=== PATIENT | female | born 1990 | race Caucasian/White ===

== ENCOUNTER 2017-03-27 11:44 | Emergency (ER) | payer OTHER ==
[2017-03-27 12:07] VITALS: BP 136/80; PULSE 65; TEMP 98.1; BMI 27.3
--- NOTE | 2017-03-27 13:22 | PDOC ---
History of Present Illness - General Chief Complaint: Sore Throat Stated Complaint: THROAT PAIN Time Seen by Provider: 03/27/17 12:49 History Source: Patient Exam Limitations: No Limitations - History of Present Illness Initial Comments: 03/27/17 13:16 Patient is a 27-year-old female history of achalasia with repair, 1 week history of sore throat, dysphasia, now developed generalized rash. Tactile fever last night. No cough. Allergies: No known allergies Medications: None Family History: Non-contributory Social History: Denies smoking, alcohol use, or IVDU Review of Systems GENERAL/CONSTITUTIONAL: Fever. No weakness. No weight change. HEAD, EYES, EARS, NOSE AND THROAT: No change in vision. No ear pain or discharge. No sore throat. CARDIOVASCULAR: No chest pain or shortness of breath. RESPIRATORY: No cough, wheezing, or hemoptysis. GASTROINTESTINAL: No nausea, vomiting, diarrhea or constipation. No rectal bleeding. GENITOURINARY: No dysuria, frequency, or change in urination. MUSCULOSKELETAL: No joint or muscle swelling or pain. No neck or back pain. SKIN : No rash or easy bruising. Fine macular generalized rash HEMATOLOGIC/LYMPHATIC: No anemia, easy bleeding, or history of blood clots. No lymphadenopathy. ALLERGIC/IMMUNOLOGIC: No hives or skin allergy. No latex allergy. Physical Exam: GENERAL: The patient is awake, alert, and fully oriented, in no acute distress. EYES: Pupils equal, round and reactive to light, extraocular movements intact, sclera anicteric, conjunctiva clear. ENT: Ears normal, nares patent, oropharynx erythematous with exudates. Moist mucous membranes. No uvula deviation NECK: Normal range of motion, supple without lymphadenopathy, JVD, or masses. LUNGS: Breath sounds equal, clear to auscultation bilaterally. No wheezes, and no crackles. HEART: Regular rate and rhythm, normal S1 and S2 without murmur, rub or gallop. ABDOMEN: Soft, nontender, normoactive bowel sounds. No guarding, no rebound. No masses. No bruising or abrasions MUSCULOSKELETAL: Normal range of motion, no edema. No clubbing or cyanosis. No cords, erythema, or tenderness. NEUROLOGICAL: Cranial nerves II through XII grossly intact. Normal speech, normal gait. SKIN: Warm, Dry, normal turgor, generalized macular rash Past History - Past Medical History Allergies/Adverse Reactions: Allergies Allergy/AdvReac Type Severity Reaction Status Date / Time No Known Allergies Allergy Verified 03/27/17 12:04 Home Medications: Ambulatory Orders Amoxicillin - [Amoxicillin 500mg Capsule -] 500 mg PO BID #20 capsule 03/27/17 GI Disorders: Yes (GERD, ACHALASIA) - Psycho/Social/Smoking Cessation Hx Anxiety: No Suicidal Ideation: No Smoking Status: No Smoking History: Never smoked Have you smoked in the past 12 months: No Number of Cigarettes Smoked Daily: 0 Information on smoking cessation initiated: No Hx Alcohol Use: No Drug/Substance Use Hx: No Substance Use Type: None *Physical Exam - Vital Signs Last Vital Signs Temp Pulse Resp BP Pulse Ox 98.1 F 65 18 136/80 100 03/27/17 12:04 03/27/17 12:04 03/27/17 12:04 03/27/17 12:04 03/27/17 12:04 Medical Decision Making - Medical Decision Making 03/27/17 13:22 A/P: Patient with sore throat, dysphasia, generalized rash absence of cough. We'll treat patient with amoxicillin, warm salt water gargles, follow-up with PMD in 3 days if symptoms persist. Change Toothbrush in 3 days I discussed the physical exam findings, ancillary test results and final diagnoses with the patient. I answered all of the patient's questions. The patient was satisfied with the care received and felt comfortable with the discharge plan and treatment plan. The patient will call to arrange follow-up and will return to the Emergency Department with any new, persistent or worsening symptoms. *DC/Admit/Observation/Transfer Diagnosis at time of Disposition: Strep pharyngitis - Discharge Dispostion Disposition: HOME Condition at time of disposition: Good Admit: No - Prescriptions Prescriptions: Amoxicillin - [Amoxicillin 500mg Capsule -] 500 mg PO BID #20 capsule - Referrals Referrals: Desirae Tejada MD [Primary Care Provider] - - Patient Instructions Printed Discharge Instructions: DI for Strep Throat Additional Instructions: 1. Increase fluid. 2. Pedialyte or Gatorade. 3. Please change toothbrush within 3 days of starting antibiotics. 4. Warm saltwater gargles. 5. Please follow up with PMD in 3 days if symptoms not resolving. 6. Please return to the ER unable to drink or eat, increased fever or other concerns
== END 2017-03-27 13:28 | disposition home or self-care (01) ==
LOC: JERFT 11:44
DX: J02.0 Streptococcal pharyngitis (principal); B95.5 Unspecified streptococcus as the cause of diseases classified elsewhere; K22.0 Achalasia of cardia
CPT/HCPCS: 99281-25

== ENCOUNTER 2017-04-15 01:04 | Emergency (ER) | payer OTHER ==
[2017-04-15 01:20] VITALS: BP 120/53; PULSE 96; TEMP 98.2; BMI 26.4
[2017-04-15 01:42] LABS: URINE APPEARANCE CLOUDY; URINE BILIRUBIN NEGATIVE (NEGATIVE); URINE COLOR YELLOW; URINE GLUCOSE (UA) NEGATIVE (NEGATIVE); URINE KETONE NEGATIVE (NEGATIVE); URINE NITRITE NEGATIVE (NEGATIVE); URINE UROBILINOGEN NEGATIVE E.U./dl (0.2-1.0)
[2017-04-15 01:44] LABS: URINE BLOOD 3+ (NEGATIVE); URINE LEUK ESTERASE 3+ (NEGATIVE); URINE PROTEIN 2+ (NEGATIVE)
[2017-04-15 01:50] LABS: URINE BACTERIA MODERATE /hpf (NONE SEEN); URINE RBC 3992 /hpf (0-3); URINE WBC 1383 /hpf (3-5)
[2017-04-15] MEDS ORDERED: CEPHALEXIN MONOHYDRATE 250 MG CAPSULE (FP) ONE (01:53)
[2017-04-15] MEDS ORDERED: PHENAZOPYRIDINE HCL 100 MG TABLET (FP) ONE (01:53)
[2017-04-15] MEDS ORDERED: PHENAZOPYRIDINE HCL 100 MG TABLET (FP) PO ONE (01:54)
[2017-04-15] MEDS ORDERED: CEPHALEXIN MONOHYDRATE 500 MG CAPSULE (UD) PO ONE (01:54)
--- NOTE | 2017-04-15 02:06 | PDOC ---
History of Present Illness - General Chief Complaint: Urinary Problem Stated Complaint: URINARY PROBLEM Time Seen by Provider: 04/15/17 01:12 - History of Present Illness Initial Comments: 04/15/17 01:56 CHIEF COMPLAINT: "i think i have a uti" HISTORY OF PRESENT ILLNESS: 27 yo F with no PMH presents to ED with dysuria, hematuria, and urinary frequency x 3 days. Patient denies fever, nausea, vomiting. She reports recent sexual activity. PAST MEDICAL HISTORY: Denies past medical history FAMILY HISTORY: Denies SOCIAL HISTORY: Denies tobacco, alcohol, illicit drug use. SURGICAL HISTORY: Denies ALLERGIES: No known drug allergies REVIEW OF SYSTEMS General/Constitutional: Denies fever or chills. Denies weakness, weight change. Gastrointestinal: Denies nausea, vomiting, diarrhea or constipation. Denies rectal bleeding. Genitourinary: Dysuria, frequency, hematuria. PHYSICAL EXAM General Appearance: Well-appearing, appropriately dressed. No apparent distress , no intoxication. HEENT: EOMI, PERRLA. Respiratory/Chest: Lungs CTAB. Cardiovascular: RRR. S1, S2. Musculoskeletal/Extremities: Normal inspection. FROM of all extremities, normal capillary refill. No CVA tenderness. No tenderness to extremities, pedal edema, swelling, erythema or deformity. Integumentary: Appropriate color, dry, warm. 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 Fully oriented, alert. Appropriate mood/affect. Motor strength 5/5. No appreciable EOM palsy, facial droop or sensory deficit. Past History - Past Medical History Allergies/Adverse Reactions: Allergies Allergy/AdvReac Type Severity Reaction Status Date / Time No Known Allergies Allergy Verified 04/15/17 01:31 Home Medications: Ambulatory Orders Cephalexin [Keflex] 500 mg PO BID #20 capsule 04/15/17 Phenazopyridine HCl [Pyridium] 100 mg PO BID PRN #10 tablet 04/15/17 GI Disorders: Yes (GERD, ACHALASIA) - Reproductive History Is Patient Now?: No Cervical CA: No Dysfunctional Uterine Bleeding: No Ectopic : No Endometrial CA: No Polycystic Ovaries: No Tubal Ligation: No - Psycho/Social/Smoking Cessation Hx Anxiety: No Suicidal Ideation: No Smoking Status: No Smoking History: Never smoked Have you smoked in the past 12 months: No Number of Cigarettes Smoked Daily: 0 Information on smoking cessation initiated: No Hx Alcohol Use: No Drug/Substance Use Hx: No Substance Use Type: None *Physical Exam - Vital Signs Last Vital Signs Temp Pulse Resp BP Pulse Ox 98.2 F 96 H 18 120/53 99 04/15/17 01:19 04/15/17 01:19 04/15/17 01:19 04/15/17 01:19 04/15/17 01:19 ED Treatment Course - ADDITIONAL ORDERS Additional order review: Laboratory Results 04/15/17 01:26 Urine Color Yellow Urine Appearance Cloudy Urine pH 6.0 Urine Protein 2+ H Urine Glucose (UA) Negative Urine Ketones Negative Urine Blood 3+ H Urine Nitrite Negative Urine Bilirubin Negative Urine Urobilinogen Negative Ur Leukocyte Esterase 3+ H Urine RBC 3992 Urine WBC 1383 Ur Epithelial Cells Many Urine Bacteria Moderate Urine HCG, Qual Negative Medical Decision Making - Medical Decision Making 04/15/17 02:06 27 yo F with no PMH presents to ED with dysuria, hematuria, and urinary frequency x 3 days. Patient denies fever, nausea, vomiting. She reports recent sexual activity. -UA, UCx, Upreg -Pyridium, Keflex *DC/Admit/Observation/Transfer Diagnosis at time of Disposition: Urinary tract infection Qualifiers: Urinary tract infection type: site unspecified Hematuria presence: with hematuria Qualified Code(s): N39.0 - Urinary tract infection, site not specified ; R31.9 - Hematuria, unspecified - Discharge Dispostion Disposition: HOME Condition at time of disposition: Stable Admit: No - Prescriptions Prescriptions: Cephalexin [Keflex] 500 mg PO BID #20 capsule Phenazopyridine HCl [Pyridium] 100 mg PO BID PRN #10 tablet PRN Reason: Pain - Referrals Referrals: Desirae Tejada MD [Primary Care Provider] - - Patient Instructions Printed Discharge Instructions: DI for Urinary Tract Infection (UTI) Additional Instructions: Please take medication as prescribed and complete the entire course of antibiotics. If you develop any fever, nausea, vomiting, or any new or worsening symptoms, please return to the ER.
== END 2017-04-15 02:16 | disposition home or self-care (01) ==
LOC: JER 01:04
DX: N39.0 Urinary tract infection, site not specified (principal); R31.9 Hematuria, unspecified; B96.89 Other specified bacterial agents as the cause of diseases classified elsewhere
CPT/HCPCS: 81003; 81015; 84703; 87086; 87186; 99281-25

== ENCOUNTER 2022-08-07 09:37 | Emergency (ER) | payer OTHER ==
[2022-08-07 09:40] VITALS: BP 114/52; PULSE 77; RESP 18; TEMP 98.5; BMI 29.5
[2022-08-07] MEDS ORDERED: METHOCARBAMOL 500 MG TABLET ONE (09:59)
[2022-08-07] MEDS ORDERED: LIDOCAINE 5% TOPICAL PATCH ONE (09:59)
[2022-08-07] MEDS ORDERED: KETOROLAC TROMETHAMINE 30 MG/1 ML VIAL ONE (10:00)
[2022-08-07] MEDS ORDERED: DIPHTH,PERTUSS(ACELL),TET 0.5 ML DISP.SYRIN IM ONE ×2 (10:29→11:43)
== END 2022-08-07 12:47 | disposition home or self-care (01) ==
LOC: JERFT 09:37
PROC: 0HQGXZZ Repair Left Hand Skin, External Approach (ICD-10-PCS; principal; 2022-08-07)
PROC: 3E0234Z Introduction of Serum, Toxoid and Vaccine into Muscle, Percutaneous Approach (ICD-10-PCS; 2022-08-07)
DX: S61.412A Laceration without foreign body of left hand, initial encounter (principal)
CPT/HCPCS: 12001-25; 90471; 90715; 99284-25